=== PATIENT | male | born 1990 | race Caucasian/White ===

== ENCOUNTER 2018-11-11 14:16 | Emergency (ER) | payer SELFPAY | END 2018-11-11 15:00 | disposition home or self-care (01) | LOC: NAV ERS 14:16 | DX: L08.9 Local infection of the skin and subcutaneous tissue, unspecified (principal); F17.210 Nicotine dependence, cigarettes, uncomplicated; I10 Essential (primary) hypertension | CPT/HCPCS: 99282 ==

== ENCOUNTER 2018-12-10 12:35 | Emergency (ER) | payer SELFPAY | END 2018-12-10 13:05 | disposition home or self-care (01) | LOC: NAV ERS 12:35 | DX: L98.9 Disorder of the skin and subcutaneous tissue, unspecified (principal); F15.10 Other stimulant abuse, uncomplicated; I10 Essential (primary) hypertension; F17.220 Nicotine dependence, chewing tobacco, uncomplicated | CPT/HCPCS: 99281 ==

== ENCOUNTER 2019-03-11 15:26 | Emergency (ER) | payer SELFPAY ==
[2019-03-11] MEDS ORDERED: Lidocaine 1% (PF) 30 ML VIAL ONE (16:08)
[2019-03-11] MEDS ORDERED: Naproxen 500 MG TAB ONE (16:08)
== END 2019-03-11 17:03 | disposition home or self-care (01) ==
LOC: NAV ERS 15:26
DX: L03.211 Cellulitis of face (principal); I10 Essential (primary) hypertension; F17.220 Nicotine dependence, chewing tobacco, uncomplicated
CPT/HCPCS: 67700; 87070; 87205; J2001